=== PATIENT | female | born 1970 | race Caucasian/White ===

== ENCOUNTER → 2017-08-08 14:38 | Outpatient (CLI) | payer MEDICARE, OTHER, SELFPAY ==
[2017-08-08 17:44] LABS: Basophils # 0.1 K/mm3 (0-0.2); Basophils % 0.7 % (0.1-2.0); Eosinophils # 0.1 K/mm3 (0.0-0.4); Eosinophils % 1.4 % (0.1-12.0); Hematocrit 47.5 % (37.0-47.0); Hemoglobin 15.4 g/dL (12.2-16.2); Lymphocytes # 3.3 K/mm3 (0.7-4.5); Lymphocytes % 38.4 K/mm3 (10-50); Mean Corpuscular HGB Conc 32.3 g/dL (31.8-35.4); Mean Corpuscular Hemoglobin 28.4 pg (27.0-31.2); Monocytes # 0.3 K/mm3 (0.1-1.0); Monocytes % 3.8 % (1.7-9.3); Neutrophils # 4.8 K/mm3 (1.8-7.8); Neutrophils % 55.7 % (37.0-80.0); Platelet Count 261 K/mm3 (142-424); Red Cell Distribution Width 13.5 % (11.5-17.5); White Blood Count 8.6 K/mm3 (4.8-10.8)
[2017-08-08 18:18] LABS: Alanine Aminotransferase 31 U/L (12-78); Albumin Level 3.8 gm/dL (3.4-5.0); Albumin/Globulin Ratio 1.1 (1.1-1.8); Alkaline Phosphatase 93 U/L (46-116); Anion Gap 14.1 mEq/L (5-15); Aspartate Amino Transferase 27 U/L (15-37); Bilirubin,Total 0.4 mg/dL (0.2-1.0); Blood Urea Nitrogen 19 mg/dL (7-18); Calcium 9.3 mg/dL (8.5-10.1); Carbon Dioxide 26 mmol/L (21.0-32.0); Chloride 103 mmol/L (98-107); Creatinine,Serum 1.06 mg/dL (0.55-1.02); Estimated Glomerular Filt Rate 56 ml/min (>60); Free T4 (Free Thyroxine) 0.93 ng/dl (0.76-1.46); GFR (African American) 67 ML/MIN (>60); Globulin 3.5 gm/dl (1.3-3.2); Glucose 102 mg/dL (74-106); Potassium 4.1 mmoL/L (3.5-5.1); Sodium 139 mmol/L (136-145); Thyroid Stimulating Hormone 2.37 uIU/ml (0.358-3.740); Total Protein,Serum 7.3 gm/dL (6.4-8.2)
[2017-08-08 18:30] LABS: Erythrocyte Sedimentation Rate 22 mm/hr (0-20)
== END ==
PROVIDERS: Visit Provider Emergency Medicine
DX: R53.83 Other fatigue (principal)
CPT/HCPCS: 80053; 84439; 84443; 85025; 85651

== ENCOUNTER → 2017-08-21 10:44 | Outpatient (CLI) | payer MEDICARE, OTHER, SELFPAY ==
--- NOTE | 2017-08-21 10:45 | MM_ITS ---
MM Dig screening mamm BI w/CAD CAD Screening COMPARISON: None, this is baseline INDICATION: There is no personal or family history of breast cancer TECHNIQUE: Standard CC and MLO images were obtained. R2 CAD reviewed. FINDINGS: The breasts are composed primarily of fat with minimal scattered fibroglandular densities primarily upper outer quadrants. There are well-defined benign-appearing nodular densities in the low axillary tail of each breast almost assuredly low-lying nodes. Recommend six-month follow-up MLO views of each breast to sure interval stability since this is a baseline study. There is no suspicious lesion and there are no suspicious microcalcifications. IMPRESSION: Fibrofatty parenchyma with benign-appearing nodular densities in each breast. BI-RADS Category: 3 Benign Finding Short Term Follow-up RECOMMENDED FOLLOW-UP: 6M - 6 MONTH FOLLOW-UP (A letter has been sent to the patient regarding results of the study.)
--- NOTE | 2017-08-21 10:45 | MR_ITS ---
MR 3-d myelogram/MRCP, MR lumbar spine wo con HISTORY: RT leg numbness and tingling that caused falling. LBP. Symptoms [id number]. No trauma. ITS.REASON: BACK PAIN ORDERING PHYSICIAN: Miguel Galvan MD PATIENT AGE: 47 years Comparison: CT 10-14-2013 TECHNIQUE: Standard multiplanar multiecho sequences are performed without contrast. 3-D MIP and myelographic images are also rendered and reviewed FINDINGS: The spinal cord ends at the L1-L2 level. L1-L2, L2-L3, and L3-L4 have an unremarkable appearance. L4-L5: Type II endplate changes with degenerative disc disease with mild bulging disc along with facet hypertrophic change on the left with moderate left-sided foraminal narrowing abutting the exiting L4 nerve root. L5-S1: Minimal bulging disc. There is a small central disc protrusion/herniation very slightly eccentric toward the right. This abuts the medial aspect of the right S1 nerve root without nerve placement No canal stenosis. IMPRESSION: 1. Mild degenerative disc disease with bulging disc and moderate left foraminal narrowing at L4-L5 2. Small central disc protrusion/herniation slightly eccentric toward the right at L5-S1
== END ==
PROVIDERS: PCP Emergency Medicine; Visit Provider Emergency Medicine
DX: Z12.31 Encounter for screening mammogram for malignant neoplasm of breast (principal); M54.5 Low back pain; R53.83 Other fatigue
CPT/HCPCS: 72148; 76376; 77067

== ENCOUNTER → 2017-12-09 12:52 | Outpatient (CLI) | payer MEDICARE, OTHER, SELFPAY ==
--- NOTE | 2017-12-09 12:55 | MR_ITS ---
MR cervical spine wo con, MR 3-d myelogram/MRCP HISTORY: PT states numbness in back of head and neck. Headache. RT arm numbness and tingling. Symptoms [id number]. No trauma. Chiari malformation. Surgery in 2000. ITS.REASON: headache ORDERING PHYSICIAN: Miguel Galvan MD PATIENT AGE: 47 years Comparison: None TECHNIQUE: Standard multiplanar multiecho sequences are performed without contrast. 3-D MIP and myelographic images are also rendered and reviewed FINDINGS: There has been a prior suboccipital craniotomy for PRE malformation as described on the most recent and previous MRI. There is normal alignment. The spinal cord has an unremarkable appearance. There are scattered areas of decreased intensity within the posterior neck some of which are felt to be due to artifact from previous surgery. C2-C3: Unremarkable. C3-C4: Unremarkable. There is a small isointensity along the posterior aspect of the spinal cord on the left at the C2-C3 level measuring 2.6 mm best seen on the T2 axial images possibly due to artifact. C4-C5: Unremarkable. C5-C6: Mild degenerative disc disease with minimal bulging disc with mild narrowing of the canal at 9 mm. C6-C7 and C7-T1 have an unremarkable appearance. IMPRESSION: 1. Postsurgical changes from prior suboccipital craniotomy. 2. Minimal bulging disc at C5-C6 with mild narrowing of the canal at 9 mm without cord impingement. 3. Small T2 hypointensity posterior to the cord on the left at C3-C4 possibly related to an artifact. Follow-up suggested to confirm stability.
--- NOTE | 2017-12-09 12:55 | MR_ITS ---
MR head/brain wo con HISTORY: Severe headache for 2 months with numbness and back the head and neck, history of Chiari malformation ITS.REASON: headache ORDERING PHYSICIAN: Miguel Galvan MD PATIENT AGE: 47 years Comparison: None TECHNIQUE: Standard multiplanar multiecho sequences are performed without contrast. FINDINGS: There has been a prior suboccipital craniotomy. Are similar when compared to the previous exam. No midline shift, mass effect, intracranial hemorrhage, hydrocephalus, or acute infarction is evident. There is normal blanco-white matter differentiation. The cerebellopontine angle, cerebellum, and brainstem are unremarkable. Cerebellar tonsils are not significant changed extending to the level of C1 as before. The fourth ventricle has unremarkable appearance. The pituitary chiasm are unremarkable. No large aneurysms. No mastoid effusion or sinus air-fluid level IMPRESSION: No change with no acute finding. Prior suboccipital craniotomy.
== END ==
PROVIDERS: PCP Emergency Medicine; Visit Provider Emergency Medicine
DX: M54.9 Dorsalgia, unspecified (principal); R51 Headache; M54.2 Cervicalgia
CPT/HCPCS: 70551; 72141; 76376

== ENCOUNTER → 2018-01-26 13:49 | Outpatient (CLI) | payer MEDICARE, OTHER, SELFPAY ==
--- NOTE | 2018-01-26 13:52 | MR_ITS ---
MR lumbar spine wo con, MR 3-d myelogram/MRCP HISTORY: Low back pain X years. RT leg numbness. ITS.REASON: LOW BACK PAIN, RIGHT LEG PARESTHESIAS ORDERING PHYSICIAN: Lazara Mckeon PATIENT AGE: 47 years Comparison: MRI 08/21/17 TECHNIQUE: Standard multiplanar multiecho sequences are performed without contrast. 3-D MIP and myelographic images are also rendered and reviewed FINDINGS: There is normal alignment. The spinal cord ends at the L2 level. There is a 9 mm T1 and T2 hyperintensity involving L1 vertebral body on the right consistent with a lipoma. L2-L3 has an unremarkable appearance. L3-L4: Minimal concentric bulging disc. L4-L5: Degenerative disc disease with type II endplate changes with bulging disc along with facet and ligamentum flavum hypertrophy. Moderate left sided foraminal narrowing at the level not significantly changed. L5-S1: Degenerative disc disease with bulging disc. There is a small right paracentral disc protrusion which abuts the anteromedial aspect of the right S1 nerve root. Previously this disc had some increased T2 signal which is not present at this time. The disc protrusion itself appears slightly larger. No extruded fragment evident. There is some scarring of the left kidney. IMPRESSION: 1. Degenerative disc disease at L4-L5 with bulging disc and moderate left-sided foraminal narrowing from facet and ligamentum hypertrophy. 2. Degenerative disc disease with bulging disc at L5-S1 with a small right paracentral disc protrusion abutting the anterior medial aspect of the right S1 nerve root
== END ==
PROVIDERS: PCP Emergency Medicine; Visit Provider Physician Assistant Medical
DX: M54.5 Low back pain (principal); R20.2 Paresthesia of skin
CPT/HCPCS: 72148; 76376

== ENCOUNTER → 2022-12-18 15:58 | Outpatient (CLI) | payer MEDICARE, OTHER, SELFPAY ==
--- NOTE | 2022-12-18 15:59 | MR_ITS ---
FINAL REPORT CLINICAL HISTORY: leg and foot numbness and tingling COMPARISON: 01/26/2018 FINDINGS: Multiplanar MR imaging of the lumbar spine was performed without contrast. On the sagittal T2-weighted images, disc degeneration is seen at several levels. There are degenerative endplate changes identified at the L4-5 and L5-S1 levels. There is mild retrolisthesis of L3 on L4 and L4 on L5. There is no evidence of fracture. There are several vertebral body hemangiomas present. The conus has an unremarkable appearance. No significant canal stenosis is identified. L1-2: No significant central canal stenosis or neuroforaminal narrowing. L2-3: No significant central canal stenosis or neuroforaminal narrowing. L3-4: An annular bulge is present with a left foraminal disc protrusion slightly larger than noted on the prior MRI of 2018. There is left L4 nerve root impingement and mild right, moderate left neural foraminal narrowing. L4-5: An annular bulge is present with osteophytes. There is a central inferiorly extruded disc, more prominent than noted on the prior MRI. There is mild right and moderate left neural foraminal narrowing. L5-S1: An annular bulge is present with osteophytes and facet osteoarthropathy. There is moderate bilateral neural foraminal narrowing. IMPRESSION: Multilevel degenerative change, with findings at the L3-4 and L4-5 levels worsening since the prior MRI of 2018. Reviewed, Interpreted and Dictated by Inderjit Smith III, MD Transcribed by Shelly Vilchis Authenticated and [facility]
== END ==
PROVIDERS: PCP Physician Assistant; Visit Provider Emergency Medicine
DX: M51.26 Other intervertebral disc displacement, lumbar region (principal); M51.36 Other intervertebral disc degeneration, lumbar region; M99.83 Other biomechanical lesions of lumbar region
CPT/HCPCS: 72148; 76376

== ENCOUNTER → 2023-01-03 12:45 | Outpatient (POV) | payer MEDICARE, OTHER, SELFPAY ==
--- NOTE | 2023-01-03 13:43 | EXP.PAIN.OV ---
HPI Data of Consult Patient: new to practice Consult date: 01/03/23 Requesting Physician: Trell Abreu CRNA Primary Care Provider: Miguel Galvan MD Consult Narrative Reason for consult: Lumbar back pain. Right leg radiculopathy. History of present illness: Ms. Gale is a 52 year old female who comes our clinic today for initial consultation regarding low back pain she describes as constant, dull, aching. She rates the pain 8/10. Patient also complained of right hip and leg radicular symptoms to the foot. Patient describes pain intensifies significantly with ambulation. Pain intensifies significant with sitting. Standing is her preferred position. Patient has been taking Aleve as needed. Patient has been taking Suboxone 2 mg daily for the last 3 years. Patient reports today she is in the process of tapering her Suboxone down. Patient reports having difficulty sleeping due to the pain in the right hip and leg. I reviewed the patient's lumbar MRI with her. She has multilevel degenerative disc lumbar spine. Multilevel disc bulge L3-4, L4-5, L5-S1. There is a left L4 nerve root impingement and mild right with moderate left neuroforaminal narrowing at the L4 level. Patient's Kd #[id number] has been reviewed and appropriate. CC: Trell Abreu CRNA [facility] Disclaimer: The information contained in this section may have been updated after the patient was seen, as this information can be updated by other users. Family History Other Cancer Diabetes Heart attack Hypertension Kidney disease Stroke Social History Smoking Status: Current every day smoker alcohol intake: never substance use type: former substance user and opiates current occupational status: disabled Travel in the last 8 weeks: None Meds Home Medications and Allergies Home Medications Medication Instructions Recorded Confirmed Type buprenorphine 8 mg-naloxone 2 mg 1 tab sublingual BID 08/08/17 12/31/22 History sublingual tablet diclofenac sodium 1 % topical gel 2 g topical QID #100 grams 12/03/22 12/31/22 Rx fluorouracil 0.5 % topical cream 1 applic topical DAILY 4 weeks #30 12/03/22 12/31/22 Rx grams lidocaine 5 % topical patch 1 patch topical DAILY #30 ea 12/03/22 12/31/22 Rx nicotine 21 mg/24 hr daily 1 patch transdermal DAILY #28 ea 12/31/22 12/31/22 Rx transdermal patch New Prescriptions to Start Prescriptions: Allergies Allergy/AdvReac Type Severity Reaction Status Date / Time codeine Allergy Intermediate I-ITCHING Verified 12/31/22 15:45 aspirin Allergy Unknown Verified 12/31/22 15:45 azithromycin [From Zithromax] AdvReac Mild NA-NAUSEA Verified 12/31/22 15:45 Sulfa (Sulfonamide AdvReac Mild NA-NAUSEA/V Verified 12/31/22 15:45 Antibiotics) OMITING Assessment and Plan *Assessment and plan (1) DDD (degenerative disc disease), lumbar: Status: Chronic Category: Medical Code(s): M51.36 - Other intervertebral disc degeneration, lumbar region (2) Foraminal stenosis of lumbar region: Status: Chronic Category: Medical Code(s): M99.83 - Other biomechanical lesions of lumbar region (3) Protrusion of lumbar intervertebral disc: Status: Chronic Category: Medical Code(s): M51.26 - Other intervertebral disc displacement, lumbar region (4) Lumbar radicular pain: Status: Acute Category: Medical Code(s): M54.16 - Radiculopathy, lumbar region Plan Discussed treatment options with the patient. Patient has been to physical therapy in the past. However, patient reports minimal to no improvement. Patient continues taking NSAIDs with only partial relief in terms of her symptomology. I discussed lumbar epidural steroid injection at the L4-5 level. Answered the patient's questions. She wishes to proceed. I think this is re
[2023-01-03 14:02] VITALS: BP 135/92; PULSE 78; RESP 18; O2SAT 95; BMI 30.1
== END ==
PROVIDERS: PCP Emergency Medicine; Visit Provider Nurse Anesthetist, Certified Registered
DX: M99.83 Other biomechanical lesions of lumbar region; M51.26 Other intervertebral disc displacement, lumbar region; M51.16 Intervertebral disc disorders with radiculopathy, lumbar region
CPT/HCPCS: 99202; G0463

== ENCOUNTER 2024-10-22 10:18 | Outpatient (CLI) | payer MEDICARE, OTHER, SELFPAY ==
[2024-10-22 18:24] LABS: Hematocrit 41.4 % (37.0-47.0); Hemoglobin 13.4 g/dL (12.2-16.2); Immature Granulocytes % 0.2 %; Mean Corpuscular HGB Conc 32.4 g/dL (31.8-35.4); Mean Corpuscular Hemoglobin 28.3 pg (27.0-31.2); Mean Corpuscular Volume 87.3 fl (81-99); Nucleated Red Blood Cells % 0 %; Platelet Count 272 K/mm3 (142-424); Red Blood Count 4.74 M/mm3 (4.20-5.40); Red Cell Distribution Width-SD 40.3 fL; White Blood Count 8.7 K/mm3 (4.8-10.8)
[2024-10-22 19:04] LABS: Albumin Level 4.7 g/dl (3.5-5.0); Chloride 102 mmol/L (98-107)
[2024-10-22 19:05] LABS: Potassium 4.7 mmoL/L (3.5-5.1); Sodium 137 mmol/L (136-145)
[2024-10-22 19:07] LABS: Alanine Aminotransferase 70 U/L (12-78); Anion Gap 12.7 mEq/L (5-15); Aspartate Amino Transferase 68 U/L (14-36); Blood Urea Nitrogen 25 mg/dl (7-17); Carbon Dioxide 27 mmol/L (22.0-30.0); Creatinine,Serum 1.00 mg/dl (0.52-1.04); Estimated Glomerular Filt Rate 58 ml/min (>60); GFR (African American) 70 ML/MIN (>60)
[2024-10-22 19:08] LABS: Albumin/Globulin Ratio 1.7 (1.1-1.8); Alkaline Phosphatase 81 U/L (38-126); Bilirubin,Total 0.6 mg/dl (0.2-1.3); Calcium 9.6 mg/dl (8.4-10.2); Cholesterol 191 mg/dl (140-200); Globulin 2.7 g/dL (1.3-3.2); Glucose 79 mg/dl (74-100); HDL Cholesterol 61 mg/dl (40-60); Total Protein,Serum 7.4 g/dl (6.3-8.2); Triglycerides 112 mg/dl (30-150)
[2024-10-22 19:39] LABS: Thyroid Stimulating Hormone 4.20 uIU/mL (0.465-4.68)
== END 2024-10-22 23:59 ==
LOC: LAB.DROPOF 10-25 10:18
PROVIDERS: PCP Family Medicine; Visit Provider Family Medicine
DX: G43.909 Migraine, unspecified, not intractable, without status migrainosus (principal); E66.9 Obesity, unspecified; R20.2 Paresthesia of skin; R20.0 Anesthesia of skin
CPT/HCPCS: 80053; 80061; 84443; 85025

== ENCOUNTER 2024-10-26 13:06 | Outpatient (CLI) | payer MEDICARE, OTHER, SELFPAY ==
--- NOTE | 2024-10-26 13:08 | XR_ITS ---
FINAL REPORT TECHNIQUE: Cervical spine 5 views CLINICAL HISTORY: neck pain COMPARISON: None FINDINGS: CERVICAL SPINE: AP, lateral, oblique and odontoid views of the cervical spine were obtained. There is no prior exam for comparison. There is no acute fracture or malalignment. Vertebral body height is preserved. The precervical soft tissues are normal. IMPRESSION: No acute bony abnormality of the cervical spine is identified. Reviewed, Interpreted and Dictated by Emery Schuster MD Transcribed by Shelly Vilchis Authenticated and [facility]
== END 2024-10-26 23:59 | disposition home or self-care (01) ==
LOC: RAD 13:07
PROVIDERS: PCP Family Medicine; Visit Provider Family Medicine
DX: M54.2 Cervicalgia (principal)
CPT/HCPCS: 72050

== ENCOUNTER 2024-11-02 10:19 | Outpatient (CLI) | payer MEDICARE, OTHER, SELFPAY ==
--- OUTSIDE RECORDS SUMMARY | 2024-11-02 10:33 | XMS_ITS | Encounter Summary ---
Author Organization Healthcare Address [address] [place] [address] Care Team Providers Care Construction Project Assistant Name Role Phone Miguel Galvan MD Primary Care Provider [phone] Encounter Details Date Type Department Care Team (Late st Contact Info) Description 11/01/2024 Community [facility] [address] [place] [address] Varsha Bai, LICENSED PROSTHETIST/ORTHOTIST [address] [place] [address] Social History Tobacco Use Types Packs/Day Years Used Date Smoking Tobacco: Every Day Comments Unknown Sex and Gender Information Value Date Recorded Sex Assigned at Not on file Legal Sex Female 7:59 PM EDT Gender Identity Not on file Sexual Orientation Not on file documented as of this encounter Plan of Treatment Not on file documented as of this encounter Visit Diagnoses Not on filedocumented in this encounter Care Teams Construction Project Assistant Relationship Specialty Start Date End Date Miguel Galvan MD [address] [place] [address] PCP - General 07/07/20 documented as of this encounter
--- OUTSIDE RECORDS SUMMARY | 2024-11-02 10:33 | XMS_ITS | Encounter Summary ---
Author Organization Healthcare Address [address] [place] [address] Care Team Providers Care Ultimate Hoops Referee Name Role Phone Miguel Galvan MD Primary Care Provider Encounter Details Date Type Department Care Team (Late st Contact Info) Description 10/26/2024 Community [facility] Community Practice [address] [place] [address] Varsha Bai, DOG DAY CARE ATTENDANT [address] [place] [address] Social History Tobacco Use Types Packs/Day Years [...] on filedocumented in this encounter Care Teams Ultimate Hoops Referee Relationship Specialty Start Date End Date Miguel Galvan MD [address] [place] [address] PCP - General 07/07/20 documented as of this encounter
--- OUTSIDE RECORDS SUMMARY | 2024-11-02 10:33 | XMS_ITS | Clinical Summary ---
Author Organization Healthcare Address [address] [id number] Care Team Providers Care Power Shovel Operator Helper Name Role Phone Miguel Galvan MD Primary Care Provider [phone] Encounters Date Type Department Care Team Description 11/01/2024 [facility] [address] [place] [address] Varsha Bai APRN 10/26/2024 [facility] Practice [address] [place] [address] Varsha Bai, EQUIPMENT APPLICATION SPECIALIST from Last 3 Months Family History Medical History Relation Name Comments Diabetes Other 1 Hypertension Other 2 Heart attack Other 3 Relation Name Status Comments Other 1 Other 2 Other 3 Social History Tobacco Use Types Packs/Day Years Used Date Smoking Tobacco: Every Day Comments Unknown Sex and Gender Information Value Date Recorded Sex Assigned at Not on file Legal Sex Female 7:59 PM EDT Gender Identity Not on file Sexual Orientation Not on file Last Filed Vital Signs Vital Sign Reading Time Taken Comments Blood Pressure 118/80 01/05/2018 10:51 AM EST Pulse - - Temperature - - Respiratory Rate - - Oxygen Saturation - - Inhaled Oxygen Concentration - - Weight 74 kg (163 lb 2.3 oz) 01/05/2018 10:51 AM EST Height 160 cm (5' 3 ) 01/05/2018 10:51 AM EST Body Mass Index 28.9 01/05/2018 10:51 AM EST Plan of Treatment Not on file Care Teams Power Shovel Operator Helper Relationship Specialty Start Date End Date Miguel Galvan MD [address] [place] [address] [place] [id number] PCP - General 07/07/20
== END 2024-11-02 23:59 | disposition home or self-care (01) ==
LOC: RAD 10:19
PROVIDERS: PCP Family Medicine; Visit Provider Family Medicine
DX: M54.2 Cervicalgia (principal); M62.89 Other specified disorders of muscle; G43.909 Migraine, unspecified, not intractable, without status migrainosus; R20.0 Anesthesia of skin; R20.2 Paresthesia of skin; R29.898 Other symptoms and signs involving the musculoskeletal system

== ENCOUNTER 2024-11-15 13:41 | Outpatient (CLI) | payer MEDICARE, OTHER, SELFPAY ==
--- NOTE | 2024-11-15 13:45 | MR_ITS ---
FINAL REPORT TECHNIQUE: Multiplanar and multisequence imaging of the brain was obtained before and after contrast administration. CLINICAL HISTORY: headaches COMPARISON: 12/09/2017 FINDINGS: Brain parenchymal: There is no mass effect or midline shift. There are no areas of abnormal signal intensity.The cerebellum and brainstem are without acute abnormality. Ventricles: The ventricles are symmetric in size and configuration without hydrocephalus. Extra-axial spaces: No extra-axial fluid collections. Diffusion imaging: No areas of restricted diffusion to suggest acute infarct. Flow voids: Flow voids within the major intracranial vessels are preserved. Note is made of a probable occipital craniotomy, also noted on the prior MR of 12/09/2017. This may have been performed for a Chiari malformation. Soft tissues: Soft tissues are without acute abnormality. Post contrast imaging: No abnormal enhancement. IMPRESSION: No acute intracranial abnormality and no pathologic contrast enhancement. Probable occipital craniotomy, which may have been performed for a Chiari malformation in the past. Reviewed, Interpreted and Dictated by Liss Fields MD Transcribed by Shelly Vilchis Authenticated and [facility]
--- OUTSIDE RECORDS SUMMARY | 2024-11-15 13:46 | XMS_ITS | Encounter Summary ---
Author Organization Healthcare Address [address] [place] [address] Care Team Providers Care Filter Press Operator Name Role Phone Miguel Galvan MD Primary Care Provider Encounter Details Date Type Department Care Team (Late st Contact Info) Description 10/26/2024 Community [facility] Community Practice [address] [place] [address] Varsha Bai, SOD CUTTER [address] [place] [address] Social History Tobacco Use Types Packs/Day Years [...] on filedocumented in this encounter Care Teams Filter Press Operator Relationship Specialty Start Date End Date Miguel Galvan MD [address] [place] [address] PCP - General 07/07/20 documented as of this encounter
--- OUTSIDE RECORDS SUMMARY | 2024-11-15 13:46 | XMS_ITS | Clinical Summary ---
Author Organization Healthcare Address [address] [id number] Care Team Providers Care Apple Thinner Name Role Phone Miguel Galvan MD Primary Care Provider Encounters Date Type Department Care Team Description 11/01/2024 [facility] [address] [place] [address] Varsha Bai APRN 10/26/2024 [facility] Practice [address] [place] [address] Varsha Bai, REGULATORY AFFAIRS SPECIALIST from Last 3 Months Family History [...] of Treatment Not on file Care Teams Apple Thinner Relationship Specialty Start Date End Date Miguel Galvan MD [address] [place] [address] [place] [id number] PCP - General 07/07/20
--- OUTSIDE RECORDS SUMMARY | 2024-11-15 13:46 | XMS_ITS | Encounter Summary ---
Author Organization Healthcare Address [address] [place] [address] Care Team Providers Care Video Tape Duplicator Name Role Phone Miguel Galvan MD Primary Care Provider [phone] Encounter Details Date Type Department Care Team (Late st Contact Info) Description 11/01/2024 Community [facility] Community Practice [address] [place] [address] Varsha Bai, RESIDENTIAL GREEN BUILDING DESIGNER [address] [place] [address] Social History Tobacco Use Types Packs/Day Years [...] on filedocumented in this encounter Care Teams Video Tape Duplicator Relationship Specialty Start Date End Date Miguel Galvan MD [address] [place] [address] PCP - General 07/07/20 documented as of this encounter
--- NOTE | 2024-11-15 14:45 | MR_ITS ---
FINAL REPORT TECHNIQUE: Multi plantar and multisequence imaging of the cervical spine was obtained before and after the administration of intravenous contrast. CLINICAL HISTORY: neck pain COMPARISON: None FINDINGS: There is normal alignment of the cervical vertebral bodies. Vertebral body height is preserved. Bone marrow signal intensity is normal. There is no edema or pathologic marrow replacement. The signal intensity within the substance of the spinal cord is normal. There is no paraspinal mass or fluid collection. C2-C3: There is no focal disc herniation, central stenosis or neural foraminal narrowing. C3-C4: There is no focal disc herniation, central stenosis or neural foraminal narrowing. C4-C5: There is no focal disc herniation, central stenosis or neural foraminal narrowing. C5-C6: An annular bulge is present, with degenerative endplate changes and facet osteoarthropathy. There is mild canal stenosis, and mild left neural foraminal narrowing. C6-C7: An annular bulge is present, without focal disc herniation, central stenosis or neural foraminal narrowing. C7-T1: There is no focal disc herniation, central stenosis or neural foraminal narrowing. Postcontrast images reveal no pathologic contrast enhancement. IMPRESSION: Mild degenerative change at the C5-6 and C6-7 levels. Reviewed, Interpreted and Dictated by Liss Fields MD Transcribed by Shelly Vilchis Authenticated and [facility]
[2024-11-15] MEDS: SODIUM CHLORIDE 0.9% 10ML SYR (RAD ONLY) 10 ML IV (14:48)
[2024-11-15] MEDS: GADOTERIDOL INJ 20ML SYRINGE 20 ML IV (14:48)
== END 2024-11-15 23:59 | disposition home or self-care (01) ==
LOC: RAD 13:44
PROVIDERS: PCP Family Medicine; Visit Provider Family Medicine
DX: M47.812 Spondylosis without myelopathy or radiculopathy, cervical region (principal); R90.89 Other abnormal findings on diagnostic imaging of central nervous system; R29.898 Other symptoms and signs involving the musculoskeletal system; R20.0 Anesthesia of skin; R20.2 Paresthesia of skin; G43.909 Migraine, unspecified, not intractable, without status migrainosus; M62.89 Other specified disorders of muscle
CPT/HCPCS: 70553; 72156; A9576